=== PATIENT | male | born 1975 | race Caucasian/White ===

== ENCOUNTER 2016-08-02 07:18 | Emergency (ER) | payer OTHER ==
[2016-08-02 07:28] VITALS: BP 162/93
--- NOTE | 2016-08-02 07:36 | UC ---
Respiratory Complaint HPI - HPI Summary HPI Summary: 4 DAYS OF NASAL CONGESTION, GREEN MUCOUS AND DRY COUGH. NO FEVER, ST, N/V/D. - History of Current Complaint Chief Complaint: UCRespiratory Stated Complaint: COUGH, AND CHEST CONGESTION Time Seen by Provider: 08/02/16 07:30 Hx Obtained From: Patient Onset/Duration: Gradual Onset, Lasting Days, Still Present Timing: Constant Severity Initially: Moderate Severity Currently: Moderate Pain Intensity: 0 Pain Scale Used: 0-10 Numeric Character: Cough: Nonproductive Aggravating Factors: Nothing Alleviating Factors: Nothing Associated Signs And Symptoms: Positive: URI, Nasal Congestion. Negative: Dyspnea, Fever, Pleuritic Chest Pain, Wheezing - Allergies/Home Medications Allergies/Adverse Reactions: Allergies Allergy/AdvReac Type Severity Reaction Status Date / Time No Known Allergies Allergy Verified 08/02/16 07:28 Home Medications: Home Medications NK [No Home Medications Reported] 08/02/16 [History Confirmed 08/02/16] PMH/Surg Hx/FS Hx/Imm Hx Previously Healthy: Yes Endocrine History Of: Denies: Diabetes, Thyroid Disease Cardiovascular History Of: Denies: Cardiac Disorders, Hypertension Respiratory History Of: Denies: COPD, Asthma GI/ History Of: Denies: Ulcer - Surgical History Surgical History: None - Family History Known Family History: Positive: Hypertension - Social History Alcohol Use: None Substance Use Type: None Smoking Status (MU): Never Smoked Tobacco Review of Systems Constitutional: Negative ENT: Nasal Discharge Respiratory: Cough Cardiovascular: Negative Gastrointestinal: Negative All Other Systems Reviewed And Are Negative: Yes Physical Exam Triage Information Reviewed: Yes Appearance: Well-Appearing, No Pain Distress, Well-Nourished Vital Signs: Initial Vital Signs Temp 98.5 F 08/02/16 07:25 Pulse 87 08/02/16 07:25 Resp 16 08/02/16 07:25 BP 162/93 08/02/16 07:25 Pulse Ox 96 08/02/16 07:25 Vital Signs Reviewed: Yes Eyes: Positive: Conjunctiva Clear ENT: Positive: Hearing grossly normal, Pharynx normal, Other: - RIGHT TM NORMAL. LEFT TM RETRACTED Neck: Positive: Supple, Nontender, No Lymphadenopathy Respiratory Exam: Normal Cardiovascular Exam: Normal Abdomen Description: Positive: Soft Musculoskeletal: Positive: No Edema Neurological: Positive: Alert Psychological: Positive: Age Appropriate Behavior Skin: Negative: rashes UC Diagnostic Evaluation - Laboratory O2 Sat by Pulse Oximetry: 96 Respiratory Course/Dx - Differential Dx/Diagnosis Provider Diagnoses: ACUTE URI Discharge - Discharge Plan Condition: Stable Disposition: HOME Patient Education Materials: Upper Respiratory Infection (ED) Referrals: Raj Gupta MD [Primary Care Provider] - If Needed Additional Instructions: ACUTE UPPER RESPIRATORY INFECTION The common cold is a benign self-limited syndrome representing a group of diseases caused by members of several families of viruses. It is the most frequent acute illness in the [place] and throughout the industrialized world. The term "common cold" refers to a mild upper respiratory viral infection involving, to variable degrees, nasal congestion and discharge ( rhinorrhea), sneezing, sore throat, cough, low-grade fever, headache, and malaise. Symptomatic therapy remains the mainstay of common cold treatment. In the absence of convincing evidence of a secondary bacterial infection, antibiotics are not effective in the treatment of the common cold and should not be prescribed. Be advised that the usual course and duration of illness is up to one and a half weeks for patients with a cold, but can last slightly longer; symptoms usually persist longer in smokers. YOUR BLOOD PRESSURE IS ELEVATED. BE SURE TO FOLLOW THIS UP WITH DR. GUPTA WITHIN 2-3 WEEKS.
== END 2016-08-02 07:44 | disposition home or self-care (01) ==
LOC: UCEAST 07:18
DX: J06.9 Acute upper respiratory infection, unspecified (principal)
CPT/HCPCS: 99211; G0463

== ENCOUNTER 2016-09-15 17:42 | Emergency (ER) | payer OTHER ==
[2016-09-15 17:52] VITALS: BP 144/94
--- NOTE | 2016-09-15 19:21 | RAD ---
Indication: Shoulder pain. 4 views of the right shoulder demonstrates a comminuted fracture of the proximal humeral head. No significant displacement is noted. IMPRESSION: Comminuted fracture of the proximal humeral head without significant displacement.
--- NOTE | 2016-09-15 21:03 | UC ---
Raven Morin SooYoung, scribed for Yunier Figueroa MD on 09/15/16 at 1849 . Upper Extremity HPI - HPI Summary HPI Summary: A 41 y/o M presents to [facility] with RUE pain at shoulder onset at approx 1130. [place], when he tripped and landed on his arm. He also has an abrasion to his R knee, but he states his knee feels OK and is steady. Associated sx: mild elbow pain, abrasion to R forearm. Denies: R knee pain. 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 - History of Current Complaint Chief Complaint: UCUpperExtremity Stated Complaint: SHOULDER,ARM,LEG INJURY FROM FALL Time Seen by Provider: 09/15/16 18:42 Hx Obtained From: Patient Onset/Duration: Sudden Onset, Lasting Hours - onset approx 1130, Still Present Severity Initially: Moderate Severity Currently: Moderate Pain Intensity: 4 Pain Scale Used: 0-10 Numeric Location Of Pain: Is Discrete @ - R shoulder Character: Aching, Spasmodic Alleviating Factor(s): OTC Meds - mildly Associated Signs And Symptoms: Positive: Other - mild elbow pain, abrasion to R forearm - Allergies/Home Medications Allergies/Adverse Reactions: Allergies Allergy/AdvReac Type Severity Reaction Status Date / Time No Known Allergies Allergy Verified 08/02/16 07:28 Home Medications: Home Medications Ibuprofen [Advil] 600 mg PO 09/15/16 [History] PMH/Surg Hx/FS Hx/Imm Hx Previously Healthy: Yes - pt denies HTN - Surgical History Surgical History: None - Family History Known Family History: Positive: Hypertension - Social History Occupation: Employed Full-time Lives: With Family Alcohol Use: None Substance Use Type: None Smoking Status (MU): Never Smoked Tobacco Review of Systems Skin: Other - abrasion to R forearm Motor: Decreased ROM - R shoulder, Other - pos: R shoulder pain, mild R elbow pain All Other Systems Reviewed And Are Negative: Yes Physical Exam Triage Information Reviewed: Yes Appearance: Well-Appearing, No Pain Distress Vital Signs: Initial Vital Signs Temp 99.3 F 09/15/16 17:48 Pulse 78 09/15/16 17:48 Resp 18 09/15/16 17:48 BP 144/94 09/15/16 17:48 Pulse Ox 97 09/15/16 17:48 Vital Signs Reviewed: Yes Eye Exam: Normal - EOMI, BRITTNEE ENT: Positive: Normal ENT inspection Neck: Positive: Supple, Nontender, Other: - clavicle nml; Respiratory: Positive: Lungs clear, Normal breath sounds Cardiovascular: Positive: RRR Abdomen Description: Positive: Nontender, Soft Musculoskeletal: Positive: Other: - mild tenderness to proximal humorous of shoulder joint; pt holding his R arm up with his L arm; elbow, forearm and wrist are non-tender to palpation Neurological Exam: Normal - A&Ox3; sensory/motor intact Psychological Exam: Normal - affect/mood appropriate Skin Exam: Other - warm, dry, color reflects adequate perfusion Skin: Positive: Other - abrasion to R forearm and knee Diagnostics - Radiology R SHOULDER XR Xray Interpretation: Positive (See Comments) Radiology Interpretation Completed By: Radiologist Upper Extremity Course/Dx - Course Course Of Treatment: Hypertensive BP reading (144/94); patient referred to PCP within 1 day-4 wks for follow-up. Pt medications reviewed this visit. DISCUSSED X-RAY RESULTS WITH PATIENT. SLING PLACED. RX FOR PAIN. F/U ORTHOPEDICS. RETURN HERE OR GO TO ED IF WORSE. DISCUSSED TO GET SEEN AGAIN FOR ANY NUMBNESS, DECREASED BLOOD FLOW OR OTHER CONCERNS. - Differential Dx/Diagnosis Provider Diagnoses: COMMINUTED, NON DISPLACED PROXIMAL RIGHT HUMERUS FRACTURE. Elevated blood pressure without diagnosis of hypertension Discharge - Discharge Plan Condition: Stable Disposition: HOME Prescriptions: HYDROcodone/ACETAMIN 5-325 MG* [Traphill 5-325 TAB*] 1 tab PO Q4H PRN #20 tab MDD 6 PRN Reason: Pain Patient Education Materials: Proximal Humerus Fracture (ED) Forms: *Work Release Referrals: Raj Barriga MD [Primary Care Provider] - 1 Week (Follow up regarding to high blood pressure reading (144/94) in 1-4 weeks.) Additional Instructions: FOLLOW UP WITH ORTHOPEDICS. GO TO THE EMERGENCY DEPARTMENT FOR ANY WORSENING OF YOUR CONDITION; WEAKNESS, NUMBNESS, LOSS OF BLOOD FLOW OR QUESTIONS OR CONCERNS. Your blood pressure reading today was 149/94, which is HYPERTENSIVE. Follow-up with your primary care provider within 4 weeks for blood pressure readings and further evaluation. The documentation as recorded by the Raven menendez SooYoung accurately reflects the service I personally performed and the decisions made by me, Yunier Figueroa MD.
== END 2016-09-15 19:35 | disposition home or self-care (01) ==
LOC: UCEAST 17:42
DX: G20 Parkinson's disease (principal); S51.811A Laceration without foreign body of right forearm, initial encounter; W19.XXXA Unspecified fall, initial encounter; Y93.9 Activity, unspecified; Y92.9 Unspecified place or not applicable; Y99.9 Unspecified external cause status
CPT/HCPCS: 99213; G0463